=== PATIENT | female | born 1985 | race American Indian/Alaskan Native ===

== ENCOUNTER 2020-10-18 08:19 | Inpatient (IN) | payer MEDICAID ==
[2020-10-18] MEDS ORDERED: Methylergonovine 0.2 MG/1 ML Amp IM PRN (08:27)
[2020-10-18] MEDS ORDERED: Misoprostol 400 MCG (4 X 100 MCG TAB) RECTAL PRN (08:27)
[2020-10-18] MEDS ORDERED: Sodium Chloride 0.9% 10 ML Syringe FLUSH PRN ×2 (08:27→18:04)
[2020-10-18] MEDS ORDERED: Tranexamic Acid 1,000 MG in Sodium Chloride 0.9% 100 ML IV PRN (08:27)
[2020-10-18] MEDS ORDERED: Lactated Ringers 1,000 ML IV ONE (08:27)
[2020-10-18] MEDS ORDERED: Carboprost Tromethamine 250 MCG/1 ML Amp IM PRN (08:27)
[2020-10-18] MEDS ORDERED: Ondansetron 4 MG/2 ML SDV IVPUSH PRN (08:27)
[2020-10-18] MEDS ORDERED: Lidocaine 1% 30 ML SDV INJECT PRN (08:27)
[2020-10-18] MEDS: Lactated Ringers 1,000 ML IV SCH ×2 (08:30→13:14)
[2020-10-18] MEDS ORDERED: Penicillin G Potassium 5,000,000 Unit Vial ONE (08:30)
[2020-10-18] MEDS ORDERED: Oxytocin/Normal Saline 30 UNIT/500 ML BAG IV SCH (08:30)
[2020-10-18] MEDS ORDERED: Penicillin G Potassium 5 MILLUNITS in Sodium Chloride 0.9% 100 ML IV ONE (08:30)
--- NOTE | 2020-10-18 09:13 | US ---
PROCEDURE INFORMATION: Exam: US , Limited Exam date and time: 10/18/2020 8:43 AM Age: 34 years old Clinical indication: Lmp or gestational age (in weeks): ? ; Antepartum complications; Other: Edc unknown, no care, size and dates; ; Additional info: No care, abdominal pain, suspect term TECHNIQUE: Imaging protocol: Real-time ultrasound of the maternal uterus with image documentation. Exam focused on the clinical indication. COMPARISON: No relevant prior studies available. FINDINGS: Gestation: Single intrauterine gestation. heart rate: 135 bpm. Presentation: Cephalic. Placenta: Anterior fundal. Amniotic fluid: Amniotic fluid subjectively normal. BIOMETRY: Estimated due date (AUA): Average ultrasound age 37 weeks 0 days (estimated date of confinement 11/08/20). Biparietal diameter: 9.1 cm. Head circumference: 33.8 cm. Femur length: 6.9 cm. IMPRESSION: Single viable intrauterine gestation with estimated gestational age of 37 weeks 0 days.
[2020-10-18] MEDS ORDERED: Nalbuphine 10 MG/1 ML Vial IM ONE (11:03)
--- NOTE | 2020-10-18 12:23 | OBOUT ---
DATE: 10/18/2020 TIME: 8:30 to 8:45. REASON FOR NST: 1. Intrauterine . No care. Unsure dates. 2. Abdominal pain and contraction. 3. Suspect rupture of membranes approximately 12 hours prior. 4. No care. 5. Gestational versus transient hypertension versus preeclampsia, following closely. 6. . NST INTERPRETATION: During this time period, heart tone baseline is approximately 135, at least two 15 x 15 beats per minute accelerations, making this strip reactive as well as reassuring. Tocometer reveals potential 4 to 5 contractions felt by the patient breathing through them. ASSESSMENT: 1. Nonstress test, reactive, and reassuring. 2. Tocometer with contractions. PLAN: Please see admit history and physical for further details. At current time of dictation, stat ultrasound is being done. [facility] /[id number]
[2020-10-18] MEDS: Penicillin G Potassium 3 MILLUNITS in Sodium Chloride 0.9% 100 ML IV SCH ×2 (12:41→16:37)
[2020-10-18] MEDS ORDERED: fentaNYL 100 MCG/2 ML SDV ONE (13:03)
[2020-10-18] MEDS ORDERED: EPINEPHrine 1 MG/1 ML Amp ONE ×3 (13:04→13:17)
[2020-10-18] MEDS ORDERED: Sodium Bicarbonate 4.2% 2.5 MEQ/5 ML SDV ONE ×2 (13:04→13:17)
[2020-10-18] MEDS ORDERED: fentaNYL 100 MCG/2 ML SDV ITHECAL ONE (13:17)
[2020-10-18] MEDS ORDERED: Sodium Chloride 0.9% 20 ML SDV ONE (13:17)
--- NOTE | 2020-10-18 13:28 | PCM.SN.2 ---
- Free Text/Narrative Note: Intrathecal, sitting position, sterile prep and drape. 1% lidocaine w bicarb for skinwheal to L2 L3 interspace. Introducer, 24 ga pencan x 1. Pos CSF, neg heme, neg parasthesia. 0.1 ml pf 1:1000 epi, 0.4 ml pf NS, 15 mcg pf sufenta, 35 mcg pf fentanyl and 6 mg of 0.75% pf bupivacaine injected after CSF aspiration. Pt to L lateral position. Procedure time 1300 to 1330
--- NOTE | 2020-10-18 14:03 | HP ---
PATIENT IDENTIFICATION: Kathy Barger is a 34-year-old G1, P0, intrauterine , unsure dates with no care. Appears suspected term by her history. Presents with abdominal pain and vaginal leaking. HISTORY OF PRESENT ILLNESS: The patient states vaginal leaking started last night around 8 to 9 p.m., described as clear fluid enough to leak through all her clothing and what she was wearing associated with abdominal pain felt in the lower abdomen, severe enough that she is breathing through them, worsening over time, coming every couple of minutes, and nothing seems to make them better. She denies any spotting or bleeding. She has had no care up to this point in time. Records were called for and reviewed. Last visit was 09/26/2016 that we could find in [facility] ER. At that time, she was brought in for intoxication and need for medical clearance with drinking throughout the night. During that ER visit, urine drug screen was positive for THC as well as alcohol level of 387 mg/dL. ALLERGIES: None. MEDICATIONS: None. PAST MEDICAL HISTORY: The patient was hospitalized she thinks for something once, but would not elicit any further and could not remember. PAST SURGICAL HISTORY: None. FAMILY HISTORY: Negative for anesthesia or bleeding problems. No defects elicited. SOCIAL HISTORY: The patient lives in [facility] [place] with her niece. They have some dogs. She does smoke tobacco occasionally. Denies any drug use or alcohol use during this or recently. REVIEW OF SYSTEMS: Otherwise fully reviewed and felt to be noncontributory other than the above. OBJECTIVE: Vital Signs: Initial blood pressure was 170/88, heart rates between 90 and 100 by central exam, respiratory rate is 12 to 16. The patient feels afebrile. Appearance: Breathing through her contractions, but answering questions appropriately in between. Head: Atraumatic. EOMs intact. PERRLA. No scleral icterus. No sore throat. Mucous membranes are moist. Neck: No obvious tenderness. Lungs: Clear to auscultation bilaterally. No increased work of breathing. Heart: S1, S2. Regular rate and rhythm. Abdomen: Gravid. Manolo's indeterminate. Nontender, nondistended. Bowel sounds positive. No organomegaly, pulsatile masses, or obvious hernias. No rebound, rigidity, or guarding with monitors applied. : Normal external female genitalia. Normal position and presentation of urethra. Annette speculum exam was done. Did reveal positive pooling with cervix appearing to be at least 1 to 2 cm dilated as best I can tell. Dark color presenting part, suspect hair. GC, chlamydia, and wet prep were obtained. Vaginal exam was not done as ultrasound is pending. Extremities: 1 to 2+ pitting edema to proximal tibia. Deep tendon reflexes 2 to 3 out of 4 bilaterally and symmetric in extremities. Psychiatric: Mood and affect congruent. Judgment and insight intact. Skin: Without any cyanosis, clubbing, or jaundice. Pending, has no care labs, PIH panel, and a stat ultrasound. heart tones are felt to be reactive and reassuring with heart tone baseline around the 135 range. Tocometer reveals contractions when reading every couple of minutes. ASSESSMENT: 1. Intrauterine , suspect term by patient history and exam. Awaiting ultrasound today. 2. Abdominal pain with contractions. Suspected contractions started last night. Appears that her cervix is open on speculum exam. We will check her cervix if no previa is noted on the ultrasound. 3. Vaginal leaking, suspect rupture of membranes approximately at 8 to 9 p.m. yesterday. Would be approximately 12 hours ago at this point in time. 4. No care. 5. Gestational versus transient hypertension versus preeclampsia. We will follow blood pressures closely. The patient was in pain with blood pressure being taken and will need to follow this closely. May need further evaluation and treatment. 6. G1, P0. PLAN: The patient will be admitted. No care labs, stat ultrasound. Will check her cervix after the ultrasound and we will continue to follow clinically and closely. May need treatment for potential preeclampsia versus expected management and we will watch closely at this point in time. The patient will be admitted. Please see orders for further details. [facility] /[id number]
--- NOTE | 2020-10-18 14:12 | PN ---
DATE: 10/18/2020 SUBJECTIVE: The patient is still feeling contractions. OBJECTIVE: Reviewing ultrasound and with tech and imaging today appears to have average gestational age based on ultrasound at 37 weeks with a fundal placenta well away from the cervical os. ASSESSMENT: 1. Intrauterine at 37 weeks by ultrasound today. 2. Suspected labor as evidenced with contractions and cervical dilation seen on speculum exam. We will check her cervix here in a little while. 3. Spontaneous rupture of membranes approximately 12 hours prior at 8 p.m. to 9 p.m. on 10/17/2020. 4. No care. 5. Gestational versus transient versus preeclampsia. Workup being done. 6. G1, P0. PLAN: We will continue to follow clinically and closely. Plans were discussed with the patient. [facility] /[id number]
--- NOTE | 2020-10-18 14:47 | PN ---
DATE: 10/18/2020 SUBJECTIVE: The patient continues to breathe through her contractions. Ultrasound has been completed. OBJECTIVE: Vital Signs: heart tones in 140s range. Last blood pressure was 155/98, heart rate 88. Genitourinary: Vaginal exam reveals to be 2 cm, 100% effaced, 0 station, vertex suspected, and a forebag was felt with artificial rupture of membranes of this yielding clear fluid. heart tones appeared to be reassuring. Tocometer reveals contractions every 2 to 3 minutes at this time. ASSESSMENT AND PLAN: 1. Intrauterine at 37 weeks by ultrasound today. Vaginal leaking started at approximately 8 p.m. to 9 p.m. on 10/17/2020 with suspected forebag with artificial rupture of membranes as above. 2. Contractions of labor. 3. No care. 4. Gestational hypertension versus preeclampsia. No severe features at this point in time. We will continue to follow closely. Await labs and proceed with treatment if need be. 5. G1, P0. PLAN: Now, status post artificial rupture of membranes. We will continue to follow closely and clinically. The patient understands and agrees with the above treatment plan. I did discuss with her with no care, baby measuring around 37 weeks, we will need to follow closely after delivery of child and may need further evaluation and treatment there as well. [facility] /[id number]
[2020-10-18] MEDS ORDERED: Diphtheria,Pertussis(Acell),Tetanus Vaccine 0.5 ML SDV IM ONE (18:04)
[2020-10-18] MEDS ORDERED: Simethicone 80 MG Tab.Chew PO PRN (18:04)
[2020-10-18] MEDS ORDERED: Zolpidem 5 MG Tab PO PRN (18:04)
[2020-10-18] MEDS ORDERED: Benzocaine/Menthol 20%-0.5% Spray 56 GM Canister TOP PRN (18:04)
[2020-10-18] MEDS ORDERED: Oxytocin 10 Units/1 ML SDV IM PRN (18:04)
[2020-10-19] MEDS: Ibuprofen 800 MG Tab PO PRN ×2 (05:55→19:12)
--- NOTE | 2020-10-19 08:55 | PN ---
DATE: 10/19/2020 day #1. SUBJECTIVE: The patient is tolerating p.o., was ambulating, urinating, passing flatus. Denied any headaches, visual changes, or upper abdominal pain. Denies any chest pain, shortness of breath, lightheadedness. OBJECTIVE: Vital Signs: Last set of vitals updated and listed in chart. Temp 99.2, heart rate 100, blood pressure 144/72, respiratory rate 16. Lungs: Clear to auscultation bilaterally. Heart: S1, S2. Regular rate and rhythm. Abdomen: Firm uterus around the umbilicus. Extremities: Peripheral edema persists. No calf pain. LABORATORY DATA: White cell count 23.8, hemoglobin 8.7 compared to predelivery hemoglobin 9.6, and platelets 387 compared to predelivery platelets of 432. ASSESSMENT AND PLAN: 1. day #1, status post spontaneous vaginal delivery, left vaginal sidewall laceration - repaired. 2. Preeclampsia without severe features. We will need to follow up clinically and closely at this point in time, especially in light of blood pressure still being elevated. No signs or symptoms of severe preeclampsia at this point in time. We will recheck CBC tomorrow for evaluation as well. 3. Anemia of acute blood loss. Hemoglobin dropping down to 8.7. Asymptomatic currently. We will need a CBC tomorrow. 4. Positive urine drug screen for methamphetamine and amphetamine. We will watch for any signs or symptoms of withdrawal with mother as well. Otherwise, possible discharge was discussed for tomorrow if everything goes well. The patient understands and agrees to the above treatment plan. [facility] /[id number]
[2020-10-19] MEDS: Docusate Sodium 100 MG Cap PO PRN ×2 (11:16→19:12)
[2020-10-19] MEDS: Ferrous Sulfate 325 MG Tab PO SCH (11:17)
[2020-10-19] MEDS: Prenatal Multivitamin with Calcium/Folic Acid/Iron Tab PO SCH (11:17)
[2020-10-19] MEDS: Acetaminophen 325 MG Tab PO PRN ×2 (11:18→22:40)
--- NOTE | 2020-10-19 11:33 | DEL ---
DATE: 10/18/2020 PREOPERATIVE DIAGNOSES: 1. Intrauterine at 37 weeks by ultrasound on date of admission/today 10/18/2020. 2. Active labor upon admission. 3. Vaginal leaking, suspected rupture of membranes between 8 and 9 p.m. on 10/17/2020. 4. No care. 5. Preeclampsia without severe features. 6. Anemia of . Hemoglobin 9.6. 7. Methamphetamine and amphetamine positive urine drug screen with admitted use approximately 2 days ago. 8. Meconium-stained fluid. 9. G1, P0. 10.Advanced maternal age. POSTOPERATIVE DIAGNOSES: 1. Intrauterine at 37 weeks by ultrasound on date of admission/today 10/18/2020, delivered. 2. Active labor upon admission. 3. Vaginal leaking, suspected rupture of membranes between 8 and 9 p.m. on 10/17/2020. 4. No care. 5. Preeclampsia without severe features. 6. Anemia of . Hemoglobin 9.6. 7. Methamphetamine and amphetamine positive urine drug screen with admitted use approximately 2 days ago. 8. Meconium-stained fluid. 9. G1, P0. 10.Left vaginal sidewall laceration, repaired. 11.Advanced maternal age. PROCEDURES PERFORMED: Nonstress test, artificial rupture of membranes, Pitocin augmentation, and spontaneous vaginal delivery with left vaginal sidewall laceration, repaired. ANESTHESIA/ANALGESIA: The patient did receive an intrathecal in the 1st stage of labor. She also received 1% lidocaine without epinephrine, approximately 3 mL for local repair with good anesthetic result. ESTIMATED BLOOD LOSS: 400 mL. FINDINGS: Female. scores and weight pending. SUMMARY OF EVENTS: This is a 34-year-old G1, P0 intrauterine at 37 weeks based on ultrasound on date of admission, 10/18/2020, with no care, who presented with abdominal pain, then noted to be in labor with vaginal leaking approximately at 8 p.m. to 9 p.m. started day prior to delivery, approximately 20 to 22 hours prior to delivery. She subsequently had ultrasound. No care labs. She was noted to have preeclampsia without severe features, anemia of with hemoglobin 9.6. Positive drug screen for methamphetamine, amphetamine. Initially, denied drug use and then admitted last methamphetamine use approximately 2 days ago. Had some meconium-stained fluid, and had an NST, and then with vaginal exam had a forebag with artificial rupture of membranes using initially clear fluid and then subsequently turned to meconium-stained type fluid. She did receive an intrathecal in the first stage of labor as she was having issues with pain and thereafter contractions started abating and Pitocin was started. She was subsequently evaluated by nurse, found to be 8 cm. I was called to the room shortly thereafter. Exam revealed her to be complete and we started pushing while in the 2nd stage of labor. She pushed with contractions. vertex further descended and then vertex was delivered in MALLIKA presentation, followed by anterior posterior shoulder as well as the rest of the infant without difficulty. Mouth and nares were suctioned. Cord was doubly clamped, cut, and infant was resuscitated on mother's abdomen. Then, approximately 10 mL cord blood was obtained for labs. Placenta then delivered with gentle cord traction and fundal massage within 10 to 15 minutes. Perineum, vagina, perirectal areas were examined and noted to have a left vaginal sidewall laceration that was anesthetized with 1% lidocaine without epinephrine, repaired with a [id number] stitch over bleeding area and resolved thereafter. Small right-sided periurethral abrasion, nonbleeding, nonrepaired after discussion with the patient. Mother and are currently stable at time of dictation. [facility] /[id number] ANNY
[2020-10-19 14:47] LABS: C.TRACHOMATIS BY TMA Negative (Negative); N.GONORRHOEAE BY TMA Negative (Negative)
[2020-10-20] MEDS: Ibuprofen 800 MG Tab PO PRN (06:18)
[2020-10-20] MEDS: Acetaminophen 325 MG Tab PO PRN (06:18)
[2020-10-20 08:06] VITALS: BP 150/82; PULSE 87
[2020-10-20] MEDS: Prenatal Multivitamin with Calcium/Folic Acid/Iron Tab PO SCH (08:53)
[2020-10-20] MEDS: Docusate Sodium 100 MG Cap PO PRN (08:53)
[2020-10-20] MEDS: Ferrous Sulfate 325 MG Tab PO SCH (08:53)
--- NOTE | 2020-10-20 14:13 | DISCH ---
ADMIT DIAGNOSES: 1. Intrauterine . No care at 37 weeks by ultrasound on date of admission. 2. Contractions with labor upon admission. 3. Vaginal leaking at approximately 8 to 9 p.m., started on 10/17/2020, day prior to admission. 4. Preeclampsia without severe features. 5. New . Hemoglobin 9.6. 6. Methamphetamine and amphetamine positive urine drug screen. 7. Advanced maternal age. 8. No care. 9. G1, P0. DISCHARGE DIAGNOSES: 1. Intrauterine , delivered. No care at 37 weeks by ultrasound on date of admission. 2. Contractions with labor upon admission. 3. Vaginal leaking at approximately 8 to 9 p.m., started on 10/17/2020, day prior to admission. 4. Preeclampsia without severe features. 5. New . Hemoglobin 9.6. 6. Methamphetamine and amphetamine positive urine drug screen. 7. Advanced maternal age. 8. No care. 9. G1, P0. 10.Meconium-stained fluid. 11.Anemia, acute blood loss. No symptoms. No indications for blood transfusion. Hemoglobin dropping from 9.6. Predelivery down to 7.9, day of discharge. 12.Left vaginal sidewall laceration, repaired. PROCEDURE PERFORMED: Nonstress test followed by artificial rupture of membranes, forebag, Pitocin augmentation, and spontaneous vaginal delivery with a left vaginal sidewall laceration, repaired, on date of admission per Dr. Ash. HISTORY OF PRESENT ILLNESS: Please see H and P. SUMMARY OF HOSPITAL COURSE: The patient admitted on the above date with above diagnoses. No care. Had ultrasound and no care. Labs done notable for preeclampsia without severe features. Intrauterine at 37 weeks, anemia of with hemoglobin 9.6, and positive drug screen for methamphetamines and amphetamines. She underwent NST followed by artificial rupture of membranes of a forebag yielding initially clear fluid and then subsequently meconium-stained fluid. Had Pitocin augmentation, intrathecal, and went on to have spontaneous vaginal delivery yielding a female with scores of 8 and 9, weighing 2920 g (6 pounds 7 ounces). Please see delivery note for further details. day #1, please see progress note. day #2, date of discharge, the patient was tolerating p.o., was ambulating, urinating, passing flatus, had some minor neck pain related to what we suspect pushing. She denied any headaches, visual changes, upper abdominal pain, chest pain, shortness of breath, or lightheadedness. OBJECTIVE: Vital Signs: Temperature 98.1, heart rate 87, blood pressure 150/82, respiratory rate 16. Lungs: Clear to auscultation bilaterally. Heart: S1, S2. Regular rate and rhythm. Abdomen: Firm uterus. -1 below umbilicus. Extremities: Trace pedal edema. No calf pain. DISCHARGE LABS: White cell count 15.9, come down from previous day of 23.8, hemoglobin 7.9, compared to predelivery hemoglobin 9.6, and platelets of 351. HELLP labs were done with notable significant improvement in LDH from 696 down to 279. Uric acid decreasing from 6.6 to 6.2. CONDITION ON DISCHARGE COMPARED TO CONDITION ON ADMISSION: Improved. DISCHARGE INSTRUCTIONS: 1. Diet: As tolerated. 2. Activity: No lifting more than 20 pounds. No sit-ups, straining, or pelvic rest for the next 6 weeks with immediate return to fertility discussed with the patient. Reasons to return or go to the emergency were discussed with the patient in detail including, but not limited to, temperature greater than 100.4, foul- smelling discharge, red, hot, tender breasts, or increased vaginal bleeding or headaches, visual changes, upper abdominal pain. FOLLOWUP: On 10/22/2020 with her baby for blood pressure evaluation and follow closely. I did discuss importance of followup and ramifications of not doing so in regard to the patient as well as her baby as well as reasons to return or go to the emergency room in regard to her baby were discussed. [facility] /[id number]
== END 2020-10-20 11:10 | disposition home or self-care (01) | DRG 806 ==
LOC: DL.OB 08:19 → EDSTATUS 09:30 → DL.OB 17:44 → OBSVTOIN 17:44
PROVIDERS: ADMIT Family Medicine; ATTEND Family Medicine
PROC: 10E0XZZ Delivery of Products of Conception, External Approach (ICD-10-PCS; principal; 2020-10-18)
PROC: 10907ZC Drainage of Amniotic Fluid, Therapeutic from Products of Conception, Via Natural or Artificial Opening (ICD-10-PCS; 2020-10-18)
PROC: 0UQGXZZ Repair Vagina, External Approach (ICD-10-PCS; 2020-10-18)
PROC: 3E0R3BZ Introduction of Anesthetic Agent into Spinal Canal, Percutaneous Approach (ICD-10-PCS; 2020-10-18)
PROC: 00HU33Z Insertion of Infusion Device into Spinal Canal, Percutaneous Approach (ICD-10-PCS; 2020-10-18)
DX: O14.04 Mild to moderate pre-eclampsia, complicating childbirth (principal); D62 Acute posthemorrhagic anemia; Z37.0 Single live birth; O99.324 Drug use complicating childbirth; F15.90 Other stimulant use, unspecified, uncomplicated; Z3A.37 37 weeks gestation of pregnancy; O99.02 Anemia complicating childbirth; O77.0 Labor and delivery complicated by meconium in amniotic fluid; O71.4 Obstetric high vaginal laceration alone
CPT/HCPCS: 01967; 36415; 51703; 59409; 76815; 80305-QW; 80307; 81001; 82565; 82570; 83615; 84156; 84450; 84460; 84520; 84550; 85027; 86592; 86762; 86803; 86850; 86900; 86901; 87081; 87210; 87340; 87389; 87491; 87591; 90471; 90715; A9270-GY; J0171; J2001; J2300; J2405; J2540; J2590; J3010; J7120; U0002

== ENCOUNTER 2020-10-26 11:54 | Emergency (ER) | payer MEDICAID ==
[2020-10-26] MEDS ORDERED: Dexamethasone 4 MG/ML SDV IVPUSH ONE (12:02)
[2020-10-26] MEDS ORDERED: Sodium Chloride 0.9% 1,000 ML IV ONE (12:02)
[2020-10-26 12:07] VITALS: BP 135/107; PULSE 136
[2020-10-26] MEDS: Sodium Chloride 0.9% 10 ML Syringe FLUSH PRN ×3 (12:14→14:11)
[2020-10-26 12:38] LABS: PTT,PARTIAL THROMBOPLSTIN TIME 26.7 SEC (22.0-34.0)
[2020-10-26 12:49] LABS: ANION GAP 18.3 mEq/L (7-13); CHLORIDE,CL 103 mmol/L (98-107); SODIUM,NA 138 mmol/L (136-145)
[2020-10-26] MEDS ORDERED: Furosemide 40 MG/4 ML VIAL IVPUSH ONE (12:49)
[2020-10-26] MEDS ORDERED: Furosemide 40 MG/4 ML VIAL ONE (12:51)
[2020-10-26 12:58] LABS: CORONAVIRUS COVID-19 NAA NEGATIVE (NEGATIVE)
[2020-10-26] MEDS ORDERED: Iopamidol 755 Mg/ML 100 ML Bottle IVPUSH ONE (12:59)
--- NOTE | 2020-10-26 13:42 | CT ---
EXAMINATION: Chest w Cont SEX: Female AGE: 34 years CLINICAL HISTORY: 34-year-old, recently , 135 pound female with DYSPNEA (drug abuse history) PE study. BNP 1850, Trop 0.775. Covid test negative. Scan technique: Volume acquisition of data from the chest obtained during intravenous administration 60 cc cc nonionic Isovue 370 contrast at 4.5 cc/s via injector obtained while patient was lying supine on the Siemens multislice scanner [place], [place]. All data archived in the PACS system for storage, reformatting axial/sagittal/coronal planes and study. Interpretation: Markedly abnormal. CT appearance most consistent with heart failure. 1. Normal cardiac silhouette (size and configuration). No pericardial effusion. 2. Extensive dense perihilar consolidation and large dependent pleural fluid accumulation (effusions, R>L). Congestive heart failure showing differential consideration along with acute respiratory distress (ARDS). 3. No peripheral "groundglass" interstitial infiltrates. 4. No suspicious parenchymal lung mass lesion or hilar/mediastinal lymphadenopathy. 5. No pneumothorax or pneumomediastinum. 6. Gallbladder, liver, stomach, spleen and pancreas unremarkable. 7. Glandular breast tissue symmetrically engorged.
[2020-10-26] MEDS ORDERED: Nitroglycerin/D5W 25 MG/250 ML BOTTLE IV SCH (13:45)
[2020-10-26] MEDS: Heparin Sodium 5,000 Units/ML Vial IVPUSH ONE ×2 (14:02→14:23)
--- NOTE | 2020-10-26 14:02 | EDM.PDOC ---
ED HPI GENERAL MEDICAL PROBLEM - General Chief Complaint: Respiratory Problem Stated Complaint: AMBULANCE Time Seen by Provider: 10/26/20 11:55 Source of Information: Reports: Patient, Old Records, Provider (Dr. Ash), RN, RN Notes Reviewed History Limitations: Reports: Other (Pt no cooperative in answering questions.) - History of Present Illness INITIAL COMMENTS - FREE TEXT/NARRATIVE: Pt sent from clinic by Dr. Ash for evaluation of shortness of breath with hypoxia. Pt is 8 days s/p vaginal delivery with preeclampsia in , no care, and methamphetamine use up until delivery. Pt admits to increasing shortness of breath over the past several days. She feels "puffy" and swollen all over her body. Denies fever, or chest pain. Admits to cough. Pt denies Hx of heart disease. She was in clinic today for routine check up when she appeared to be short of breath to Dr. Ash. She was found in clinic to have oxygen saturation of 88% on room air, with HR 130s, resp. rate 32, and afebrile. Onset: Unknown/Unsure Duration: Constant, Getting Worse Location: Reports: Chest, Generalized Quality: Reports: Pressure Severity: Severe Improves with: Reports: None Worsens with: Reports: Other (Laying down, and worse with activity/exertion.) Associated Symptoms: Reports: No Other Symptoms - Related Data Allergies Allergy/AdvReac Type Severity Reaction Status Date / Time No Known Allergies Allergy Verified 10/26/20 12:21 Home Meds: Home Meds . 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: Psychiatric History: Reports: Addiction (Methamphetamine) Social & Family History - Family History Family Medical History: No Pertinent Family History - Tobacco Use Tobacco Use Status *Q: Former Tobacco User Used Tobacco, but Quit: Yes Month/Year Tobacco Last Used: 0 - Caffeine Use Caffeine Use: Reports: None - Alcohol Use Alcohol Use History: No - Recreational Drug Use Recreational Drug Use: Yes Recreational Drug Type: Reports: Methamphetamine - Living Situation & Occupation Living situation: Reports: with Family ED ROS GENERAL - Review of Systems Review Of Systems: Comprehensive ROS is negative, except as noted in HPI. ED EXAM, GENERAL - Physical Exam Exam: See Below Exam Limited By: No Limitations General Appearance: Alert, Mild Distress, Other (Acutely ill appearing) Eye Exam: Bilateral Eye: Normal Inspection (No scleral icterus) Nose: Normal Inspection, Normal Mucosa, No Blood Throat/Mouth: Normal Lips, Normal Oropharynx, Normal Voice, No Airway Compromise Head: Atraumatic, Normocephalic Neck: Supple, Non-Tender. No: Lymphadenopathy (L), Lymphadenopathy (R) Respiratory/Chest: Chest Non-Tender, Respiratory Distress, Decreased Breath Sounds, Crackles, Rales. No: Rhonchi, Wheezing, Stridor Cardiovascular: JVD, Tachycardia GI/Abdominal: Normal Bowel Sounds, Soft, Non-Tender. No: Hepatomegaly (Female) Exam: Deferred Rectal (Female) Exam: Deferred Back Exam: Normal Inspection Extremities: Normal Range of Motion, Non-Tender, Pedal Edema Neurological: Alert, Oriented, No Motor/Sensory Deficits Psychiatric: Depressed Mood, Flat Affect Skin Exam: Warm, Dry, Intact, Pallor. No: Ecchymosis, Jaundice, Petechiae #1 Interpretation EKG Date: 10/26/20 Time: 12:07 Rhythm: Other (Sinus tach) Rate (Beats/Min): 130 Pettus: RAD-Right Pettus Deviation P-Wave: Present QRS: Normal ST-T: Depressed (minimal nondiagnostic ST segment depression) QT: Normal Comparison: NA - No Prior EKG Course - Vital Signs Last Recorded V/S: Last Vital Signs Temp 97.8 F 10/26/20 11:54 Pulse 136 H 10/26/20 11:54 Resp 32 H 10/26/20 11:54 BP 135/107 H 10/26/20 11:54 Pulse Ox 88 L 10/26/20 11:54 - Orders/Labs/Meds Orders: Active Orders 24 hr Category Date Time Status BIPAP Adult [RT BiPAP/CPAP] [RC] ASDIRECTED Care 10/26/20 13:34 Active EKG 12 Lead [EKG Documentation Completion] [RC] STAT Care 10/26/20 12:01 Active Insert Mandel Catheter [Insert Urinary Catheter] [OM.PC] Care 10/26/20 13:00 Ordered Stat Peripheral IV Care [RC] . DIRECTED Care 10/26/20 12:02 Active Urinary Catheter Assessment [RC] ASDIRECTED Care 10/26/20 13:01 Active CULTURE BLOOD [BC] Stat Lab 10/26/20 12:00 Received CULTURE BLOOD [BC] Stat Lab 10/26/20 12:38 Received STREP SCRN A RAPID W CULT CONF [RM] Stat Lab 10/26/20 12:01 Ordered Heparin Sodium/0.45% NaCl [Heparin 25,000 Units in 1/2 Med 10/26/20 14:15 Ordered NS 500 ML] 25,000 units in 500 ml IV TITRATE Nitroglycerin/D5W [Nitroglycerin 25 MG/D5W 250 ML] Med 10/26/20 13:45 Active 25 mg in 250 ml IV TITRATE Sodium Chloride 0.9% [Saline Flush] Med 10/26/20 12:00 Active 10 ml FLUSH ASDIRECTED PRN Blood Culture x2 Reflex Set [OM.PC] Stat Oth 10/26/20 12:00 Ordered Peripheral IV Insertion Adult [OM.PC] Stat Oth 10/26/20 12:01 Ordered Medication Orders Nitroglycerin/Dextrose (Nitroglycerin 25 Mg/D5w 250 Ml) 25 mg in 250 mls @ 6 mls/hr IV TITRATE WES; Protocol Last Admin: 10/26/20 14:10 Dose: 10 mcg/min, 6 mls/hr Documented by: NASEEM Sodium Chloride (Saline Flush) 10 ml FLUSH ASDIRECTED PRN PRN Reason: Keep Vein Open Last Admin: 10/26/20 14:11 Dose: 10 ml Documented by: Admin: 10/26/20 12:53 Dose: 10 ml Documented by: Admin: 10/26/20 12:14 Dose: 10 ml Documented by: NASEEM Labs: Laboratory Tests 10/26/20 10/26/20 10/26/20 Range/Units 12:00 12:00 12:00 WBC 16.8 H (5.0-10.0) 10^3/uL RBC 4.00 L (4.2-5.4) 10^6/uL Hgb 10.0 L D (12.0-16.0) g/dL Hct 31.6 L (37.0-47.0) % MCV 79.0 L (80-100) fL MCH 25.0 L (27.0-34.0) pg MCHC 31.6 L (33.0-35.0) g/dL Plt Count 636 H D (150-450) 10^3/uL Neut % (Auto) 86.8 H (42.2-75.2) % Lymph % (Auto) 8.1 L (20.5-50.1) % [place] % (Auto) 4.2 (2-8) % Eos % (Auto) 0.7 L (1.0-3.0) % Baso % (Auto) 0.2 (0.0-1.0) % Add Manual Diff Yes Neutrophils % (Manual) 82 H (42-75) % Band Neutrophils % 2 % Lymphocytes % (Manual) 11 L (20-50) % Monocytes % (Manual) 5 (2-8) % PT (9.0-12.0) SEC INR (0.9-1.2) APTT (22.0-34.0) SEC ABG pH (7.35-7.45) ABG pCO2 (35-45) mmHg ABG pO2 (70-100) mmHg ABG HCO3 (22-26) mmol/L ABG O2 Saturation (95-100) % ABG Base Excess ((-2)-(+3)) mmol/L Isai Test O2 Delivery Device Sodium 138 (136-145) mmol/L Potassium 4.3 (3.5-5.1) mmol/L Chloride 103 (98-107) mmol/L Carbon Dioxide 21 (21-32) mmol/L Anion Gap 18.3 H (7-13) mEq/L BUN 14 (7-18) mg/dL Creatinine 0.73 (0.55-1.02) mg/dL Est Cr Clr Drug Dosing TNP Estimated GFR (MDRD) > 60 BUN/Creatinine Ratio 19.2 (No establ ref range) Glucose 108 H (74-99) mg/dL Lactic Acid (0.4-2.0) mmol/L Calcium 8.3 L (8.5-10.1) mg/dL Magnesium (1.8-2.4) mg/dL Total Bilirubin 0.3 (0.2-1.0) mg/dL AST 17 (15-37) U/L ALT 15 (14-59) U/L Alkaline Phosphatase 141 H (46-116) U/L Troponin I 0.775 H* (0.000-0.056) ng/mL C-Reactive Protein 7.6 H (0.0-0.9) mg/dL B-Natriuretic Peptide 1820 H (0-100) pg/ml Total Protein 6.7 (6.4-8.2) g/dL Albumin 2.0 L (3.4-5.0) g/dL Globulin 4.7 Albumin/Globulin Ratio 0.43 TSH, Ultra Sensitive (0.36-3.74) uIU/mL Urine Color (YELLOW) Urine Appearance (CLEAR) Urine pH (5.0-9.0) Ur Specific Melba (1.005-1.030) Urine Protein (NEGATIVE) Urine Glucose (UA) (NEGATIVE) Urine Ketones (NEGATIVE) Urine Occult Blood (NEGATIVE) Urine Nitrite (NEGATIVE) Urine Bilirubin (NEGATIVE) Urine Urobilinogen (0.2-1.0) mg/dL Ur Leukocyte Esterase (NEGATIVE) Urine RBC /HPF Urine WBC (0-5/HPF) /HPF Ur Epithelial Cells (NOT SEEN) /HPF Amorphous Sediment (NOT SEEN) /HPF Urine Bacteria (0-FEW/HPF) /HPF Urine Opiates Screen (NEGATIVE) Ur Oxycodone Screen (NEGATIVE) Urine Methadone Screen (NEGATIVE) Ur Barbiturates Screen (NEGATIVE) U Tricyclic Antidepress (NEGATIVE) Ur Phencyclidine Scrn (NEGATIVE) Ur Amphetamine Screen (NEGATIVE) U Methamphetamines Scrn (NEGATIVE) Urine MDMA Screen (NEGATIVE) U Benzodiazepines Scrn (NEGATIVE) Urine Cocaine Screen (NEGATIVE) U Marijuana (THC) Screen (NEGATIVE) Ethyl Alcohol < 3 (0) mg/dL Influenza Type A RNA Negative (NEGATIVE) Influenza Type B RNA Negative (NEGATIVE) SARS-CoV-2 RNA (JUAN) Negative (NEGATIVE) 10/26/20 10/26/20 10/26/20 Range/Units 12:00 12:00 12:06 WBC (5.0-10.0) 10^3/uL RBC (4.2-5.4) 10^6/uL Hgb (12.0-16.0) g/dL Hct (37.0-47.0) % MCV (80-100) fL MCH (27.0-34.0) pg MCHC (33.0-35.0) g/dL Plt Count (150-450) 10^3/uL Neut % (Auto) (42.2-75.2) % Lymph % (Auto) (20.5-50.1) % [place] % (Auto) (2-8) % Eos % (Auto) (1.0-3.0) % Baso % (Auto) (0.0-1.0) % Add Manual Diff Neutrophils % (Manual) (42-75) % Band Neutrophils % % Lymphocytes % (Manual) (20-50) % Monocytes % (Manual) (2-8) % PT 9.6 (9.0-12.0) SEC INR 1.0 (0.9-1.2) APTT 26.7 (22.0-34.0) SEC ABG pH (7.35-7.45) ABG pCO2 (35-45) mmHg ABG pO2 (70-100) mmHg ABG HCO3 (22-26) mmol/L ABG O2 Saturation (95-100) % ABG Base Excess ((-2)-(+3)) mmol/L Isai Test O2 Delivery Device Sodium (136-145) mmol/L Potassium (3.5-5.1) mmol/L Chloride (98-107) mmol/L Carbon Dioxide (21-32) mmol/L Anion Gap (7-13) mEq/L BUN (7-18) mg/dL Creatinine (0.55-1.02) mg/dL Est Cr Clr Drug Dosing Estimated GFR (MDRD) BUN/Creatinine Ratio (No establ ref range) Glucose (74-99) mg/dL Lactic Acid 1.2 (0.4-2.0) mmol/L Calcium (8.5-10.1) mg/dL Magnesium 1.8 (1.8-2.4) mg/dL Total Bilirubin (0.2-1.0) mg/dL AST (15-37) U/L ALT (14-59) U/L Alkaline Phosphatase (46-116) U/L Troponin I (0.000-0.056) ng/mL C-Reactive Protein (0.0-0.9) mg/dL B-Natriuretic Peptide (0-100) pg/ml Total Protein (6.4-8.2) g/dL Albumin (3.4-5.0) g/dL Globulin Albumin/Globulin Ratio TSH, Ultra Sensitive 0.81 (0.36-3.74) uIU/mL Urine Color (YELLOW) Urine Appearance (CLEAR) Urine pH (5.0-9.0) Ur Specific Melba (1.005-1.030) Urine Protein (NEGATIVE) Urine Glucose (UA) (NEGATIVE) Urine Ketones (NEGATIVE) Urine Occult Blood (NEGATIVE) Urine Nitrite (NEGATIVE) Urine Bilirubin (NEGATIVE) Urine Urobilinogen (0.2-1.0) mg/dL Ur Leukocyte Esterase (NEGATIVE) Urine RBC /HPF Urine WBC (0-5/HPF) /HPF Ur Epithelial Cells (NOT SEEN) /HPF Amorphous Sediment (NOT SEEN) /HPF Urine Bacteria (0-FEW/HPF) /HPF Urine Opiates Screen (NEGATIVE) Ur Oxycodone Screen (NEGATIVE) Urine Methadone Screen (NEGATIVE) Ur Barbiturates Screen (NEGATIVE) U Tricyclic Antidepress (NEGATIVE) Ur Phencyclidine Scrn (NEGATIVE) Ur Amphetamine Screen (NEGATIVE) U Methamphetamines Scrn (NEGATIVE) Urine MDMA Screen (NEGATIVE) U Benzodiazepines Scrn (NEGATIVE) Urine Cocaine Screen (NEGATIVE) U Marijuana (THC) Screen (NEGATIVE) Ethyl Alcohol (0) mg/dL Influenza Type A RNA (NEGATIVE) Influenza Type B RNA (NEGATIVE) SARS-CoV-2 RNA (JUAN) (NEGATIVE) 10/26/20 10/26/20 10/26/20 Range/Units 13:05 13:05 13:59 WBC (5.0-10.0) 10^3/uL RBC (4.2-5.4) 10^6/uL Hgb (12.0-16.0) g/dL Hct (37.0-47.0) % MCV (80-100) fL MCH (27.0-34.0) pg MCHC (33.0-35.0) g/dL Plt Count (150-450) 10^3/uL Neut % (Auto) (42.2-75.2) % Lymph % (Auto) (20.5-50.1) % [place] % (Auto) (2-8) % Eos % (Auto) (1.0-3.0) % Baso % (Auto) (0.0-1.0) % Add Manual Diff Neutrophils % (Manual) (42-75) % Band Neutrophils % % Lymphocytes % (Manual) (20-50) % Monocytes % (Manual) (2-8) % PT (9.0-12.0) SEC INR (0.9-1.2) APTT (22.0-34.0) SEC ABG pH 7.38 (7.35-7.45) ABG pCO2 35 (35-45) mmHg ABG pO2 67 L (70-100) mmHg ABG HCO3 20.6 L (22-26) mmol/L ABG O2 Saturation 89 L (95-100) % ABG Base Excess -4 L ((-2)-(+3)) mmol/L Isai Test Performed O2 Delivery Device Bipap Sodium (136-145) mmol/L Potassium (3.5-5.1) mmol/L Chloride (98-107) mmol/L Carbon Dioxide (21-32) mmol/L Anion Gap (7-13) mEq/L BUN (7-18) mg/dL Creatinine (0.55-1.02) mg/dL Est Cr Clr Drug Dosing Estimated GFR (MDRD) BUN/Creatinine Ratio (No establ ref range) Glucose (74-99) mg/dL Lactic Acid (0.4-2.0) mmol/L Calcium (8.5-10.1) mg/dL Magnesium (1.8-2.4) mg/dL Total Bilirubin (0.2-1.0) mg/dL AST (15-37) U/L ALT (14-59) U/L Alkaline Phosphatase (46-116) U/L Troponin I (0.000-0.056) ng/mL C-Reactive Protein (0.0-0.9) mg/dL B-Natriuretic Peptide (0-100) pg/ml Total Protein (6.4-8.2) g/dL Albumin (3.4-5.0) g/dL Globulin Albumin/Globulin Ratio TSH, Ultra Sensitive (0.36-3.74) uIU/mL Urine Color Yellow (YELLOW) Urine Appearance Clear (CLEAR) Urine pH 7.0 (5.0-9.0) Ur Specific Melba >= 1.030 (1.005-1.030) Urine Protein 100 H (NEGATIVE) Urine Glucose (UA) Negative (NEGATIVE) Urine Ketones Negative (NEGATIVE) Urine Occult Blood Trace-intact H (NEGATIVE) Urine Nitrite Negative (NEGATIVE) Urine Bilirubin Negative (NEGATIVE) Urine Urobilinogen 0.2 (0.2-1.0) mg/dL Ur Leukocyte Esterase Negative (NEGATIVE) Urine RBC 0-5 /HPF Urine WBC 0-5 (0-5/HPF) /HPF Ur Epithelial Cells Rare (NOT SEEN) /HPF Amorphous Sediment Few (NOT SEEN) /HPF Urine Bacteria Rare (0-FEW/HPF) /HPF Urine Opiates Screen Negative (NEGATIVE) Ur Oxycodone Screen Negative (NEGATIVE) Urine Methadone Screen Negative (NEGATIVE) Ur Barbiturates Screen Negative (NEGATIVE) U Tricyclic Antidepress Negative (NEGATIVE) Ur Phencyclidine Scrn Negative (NEGATIVE) Ur Amphetamine Screen Negative (NEGATIVE) U Methamphetamines Scrn Negative (NEGATIVE) Urine MDMA Screen Negative (NEGATIVE) U Benzodiazepines Scrn Negative (NEGATIVE) Urine Cocaine Screen Negative (NEGATIVE) U Marijuana (THC) Screen Negative (NEGATIVE) Ethyl Alcohol (0) mg/dL Influenza Type A RNA (NEGATIVE) Influenza Type B RNA (NEGATIVE) SARS-CoV-2 RNA (JUAN) (NEGATIVE) Meds: Medications Generic Name Dose Route Start Last Admin Trade Name Freq PRN Reason Stop Dose Admin Nitroglycerin/Dextrose 25 mg in 250 mls @ 6 mls/hr 10/26/20 13:45 10/26/20 14:10 Nitroglycerin 25 Mg/D5w 250 Ml IV 10 mcg/min TITRATE WES 6 mls/hr Administration Protocol 10 MCG/MIN Sodium Chloride 10 ml 10/26/20 12:00 10/26/20 14:11 Saline Flush FLUSH 10 ml ASDIRECTED PRN Administration Keep Vein Open Discontinued Medications Generic Name Dose Route Start Last Admin Trade Name Freq PRN Reason Stop Dose Admin Dexamethasone 6 mg 10/26/20 12:02 10/26/20 12:14 Decadron IVPUSH 10/26/20 12:03 6 mg ONETIME ONE Administration Furosemide 80 mg 10/26/20 12:49 10/26/20 12:52 Lasix IVPUSH 10/26/20 12:50 80 mg NOW ONE Administration Furosemide Confirm 10/26/20 12:51 10/26/20 12:56 Lasix Administered 10/26/20 12:52 Not Given Dose 80 mg .ROUTE .STK-MED ONE Heparin Sodium (Porcine) 4,000 units 10/26/20 13:01 10/26/20 14:02 Heparin Sodium IVPUSH 10/26/20 13:02 Not Given .BOLUS ONE Sodium Chloride 1,000 mls @ 999 mls/hr 10/26/20 12:02 10/26/20 12:13 Normal Saline IV 10/26/20 13:02 999 mls/hr .BOLUS ONE Administration Iopamidol 100 ml 10/26/20 12:59 10/26/20 13:25 [id number] (76%) IVPUSH 10/26/20 13:00 60 ml ONETIME ONE Administration - Radiology Interpretation Free Text/Narrative:: CT Chest: no PE, acute heart failure with fluid overload, perihilar and dependent pleural fluid, likely effusion per radiologist's report. Departure - Departure Time of Disposition: 14:32 Disposition: DC/Tfer to Acute Hospital 02 Condition: Critical Clinical Impression: Non-ST elevated myocardial infarction (non-STEMI), edema, Methamphetamine abuse Acute heart failure Qualifiers: Heart failure type: unspecified Qualified Code(s): I50.9 - Heart failure, unspecified - Discharge Information *PRESCRIPTION DRUG MONITORING PROGRAM REVIEWED*: No *COPY OF PRESCRIPTION DRUG MONITORING REPORT IN PATIENT PHILLY: No Forms: ED Department [facility] Seps[facility] Event Note (ED) - Evaluation Sepsis Screening Result: No Definite Risk - Focused Exam Vital Signs: Vital Signs Temp Pulse Resp BP Pulse Ox 10/26/20 11:54 97.8 F 136 H 32 H 135/107 H 88 L - My Orders Last 24 Hours: My Active Orders 10/26/20 12:00 CULTURE BLOOD [BC] Stat Sodium Chloride 0.9% [Saline Flush] 10 ml FLUSH ASDIRECTED PRN Blood Culture x2 Reflex Set [OM.PC] Stat 10/26/20 12:01 EKG 12 Lead [EKG Documentation Completion] [RC] STAT STREP SCRN A RAPID W CULT CONF [RM] Stat Peripheral IV Insertion Adult [OM.PC] Stat 10/26/20 12:02 Peripheral IV Care [RC] . DIRECTED 10/26/20 12:38 CULTURE BLOOD [BC] Stat 10/26/20 13:00 Insert Mandel Catheter [Insert Urinary Catheter] [OM.PC] Stat 10/26/20 13:01 Urinary Catheter Assessment [RC] ASDIRECTED 10/26/20 13:34 BIPAP Adult [RT BiPAP/CPAP] [RC] ASDIRECTED 10/26/20 13:45 Nitroglycerin/D5W [Nitroglycerin 25 MG/D5W 250 ML] 25 mg in 250 ml IV TITRATE 10/26/20 14:15 Heparin Sodium/0.45% NaCl [Heparin 25,000 Units in 1/2 NS 500 ML] 25,000 units in 500 ml IV TITRATE - Assessment/Plan Last 24 Hours: My Active Orders 10/26/20 12:00 CULTURE BLOOD [BC] Stat Sodium Chloride 0.9% [Saline Flush] 10 ml FLUSH ASDIRECTED PRN Blood Culture x2 Reflex Set [OM.PC] Stat 10/26/20 12:01 EKG 12 Lead [EKG Documentation Completion] [RC] STAT STREP SCRN A RAPID W CULT CONF [] Stat Peripheral IV Insertion Adult [OM.PC] Stat 10/26/20 12:02 Peripheral IV Care [RC] . DIRECTED 10/26/20 12:38 CULTURE BLOOD [BC] Stat 10/26/20 13:00 Insert Mandel Catheter [Insert Urinary Catheter] [OM.PC] Stat 10/26/20 13:01 Urinary Catheter Assessment [RC] ASDIRECTED 10/26/20 13:34 BIPAP Adult [RT BiPAP/CPAP] [RC] ASDIRECTED 10/26/20 13:45 Nitroglycerin/D5W [Nitroglycerin 25 MG/D5W 250 ML] 25 mg in 250 ml IV TITRATE 10/26/20 14:15 Heparin Sodium/0.45% NaCl [Heparin 25,000 Units in 1/2 NS 500 ML] 25,000 units in 500 ml IV TITRATE
[2020-10-26 14:03] LABS: BASE EXCESS ARTERIAL -4 mmol/L ((-2)-(+3)); BICARBONATE,ARTERIAL 20.6 mmol/L (22-26); O2 DELIVERY DEVICE BIPAP; O2 SATURATION ARTERIAL 89 % (95-100); PCO2 ARTERIAL 35 mmHg (35-45); PO2 ARTERIAL 67 mmHg (70-100)
[2020-10-26 14:04] LABS: ALLEN TEST PERFORMED
[2020-10-26] MEDS ORDERED: Heparin Sodium/0.45% NaCl 25,000 UNITS/500 ML BAG IV SCH (14:15)
== END 2020-10-26 14:55 ==
LOC: DL.ED 11:54
DX: O99.43 Diseases of the circulatory system complicating the puerperium (principal); I21.4 Non-ST elevation (NSTEMI) myocardial infarction; O99.325 Drug use complicating the puerperium; O12.05 Gestational edema, complicating the puerperium; F15.10 Other stimulant abuse, uncomplicated; I50.9 Heart failure, unspecified; Z87.891 Personal history of nicotine dependence; Z20.822 Contact with and (suspected) exposure to COVID-19
CPT/HCPCS: 0240U; 36415; 36600; 51702; 71260; 80053; 80305; 80307; 81001; 82803; 83605; 83735; 83880; 84443; 84484; 85025; 85610; 85730; 86140; 87040; 93005; 93010; 94660; 96365; 96368; 96375; 99285; J1100; J1644; J1940; J3490; J7030; Q9967

== ENCOUNTER 2024-02-11 19:51 | Inpatient (IN) | payer MEDICAID ==
[2024-02-11] MEDS: Lactated Ringers 1,000 ML IV ONE ×2 (20:15→20:48)
[2024-02-11 20:22] LABS: HEMATOCRIT 30.7 % (37.0-47.0); MEAN CORPUSCULAR HEMOGLOBIN 27.1 pg (27.0-34.0); MEAN CORPUSCULAR HGB CONC 32.6 g/dL (33.0-35.0); MEAN CORPUSCULAR VOLUME 83.2 fL (80-100); RED BLOOD CELL COUNT 3.69 10^6/uL (4.2-5.4)
[2024-02-11] MEDS ORDERED: Oxytocin/Normal Saline 30 UNIT/500 ML BAG ONE (20:43)
[2024-02-11 20:59] LABS: APPEARANCE,URINE CLEAR (CLEAR); BILIRUBIN,URINE NEGATIVE (NEGATIVE); COLOR,URINE YELLOW (YELLOW); GLUCOSE,URINE NEGATIVE (NEGATIVE); KETONES,URINE NEGATIVE (NEGATIVE); LEUKOCYTE ESTERASE,URINE NEGATIVE (NEGATIVE); NITRITE,URINE NEGATIVE (NEGATIVE); OCCULT BLOOD,URINE LARGE (NEGATIVE); PROTEIN,URINE 30 (NEGATIVE); UROBILINOGEN,URINE 0.2 mg/dL (0.2-1.0)
[2024-02-11 21:08] LABS: AMPHETAMINES,URINE NEGATIVE (NEGATIVE); BARBITURATES,URINE NEGATIVE (NEGATIVE); BENZODIAZEPINE,URINE NEGATIVE (NEGATIVE); MDMA (ECSTASY), URINE NEGATIVE (NEGATIVE); METHADONE,URINE NEGATIVE (NEGATIVE); METHAMPHETAMINES,URINE NEGATIVE (NEGATIVE); OPIATES,URINE NEGATIVE (NEGATIVE); OXYCODONE,URINE NEGATIVE (NEGATIVE); PHENCYCLIDINE,URINE NEGATIVE (NEGATIVE); TCA,URINE NEGATIVE (NEGATIVE)
[2024-02-11 21:23] LABS: BACTERIA,URINE FEW /HPF (0-FEW/HPF); EPITHELIAL CELLS,URINE FEW /HPF (NOT SEEN); RBC,URINE 20-30 /HPF (0-5)
[2024-02-11] MEDS: Lactated Ringers 1,000 ML IV SCH (21:31)
[2024-02-11] MEDS: Oxytocin/Normal Saline 30 UNIT/500 ML BAG IV SCH (21:31)
[2024-02-11] MEDS ORDERED: Acetaminophen 325 MG Tab PO PRN (21:59)
[2024-02-11] MEDS ORDERED: Tranexamic Acid 1,000 MG in Sodium Chloride 0.9% 100 ML IV PRN (21:59)
[2024-02-11] MEDS ORDERED: Naloxone 2 MG/2 ML Syringe IVPUSH PRN (21:59)
[2024-02-11] MEDS ORDERED: ePHEDrine 50 MG/ML SDV IVPUSH PRN (21:59)
[2024-02-11] MEDS ORDERED: Methylergonovine 0.2 MG/1 ML Amp IM PRN (21:59)
[2024-02-11] MEDS ORDERED: Carboprost Tromethamine 250 MCG/1 ML Amp IM PRN (21:59)
[2024-02-11] MEDS ORDERED: Misoprostol 400 MCG (4 X 100 MCG TAB) RECTAL PRN (21:59)
[2024-02-11] MEDS ORDERED: Ibuprofen 800 MG Tab PO PRN (21:59)
[2024-02-11] MEDS ORDERED: Ketorolac 30 MG/ML SDV IVPUSH SCH (22:00)
[2024-02-11] MEDS: cefTRIAXone 1 GM Vial IVPUSH ONE (23:00)
[2024-02-12] MEDS: Ondansetron 4 MG/2 ML SDV IVPUSH PRN (01:02)
[2024-02-12] MEDS: diphenhydrAMINE 50 MG/ML SDV IVPUSH PRN (01:11)
[2024-02-12] MEDS: Ketorolac 30 MG/ML SDV IVPUSH SCH (03:24)
[2024-02-12 06:15] LABS: HEMATOCRIT 28.5 % (37.0-47.0); HEMOGLOBIN 9.1 g/dL (12.0-16.0); MEAN CORPUSCULAR HEMOGLOBIN 26.9 pg (27.0-34.0); MEAN CORPUSCULAR HGB CONC 31.9 g/dL (33.0-35.0); MEAN CORPUSCULAR VOLUME 84.3 fL (80-100); RED BLOOD CELL COUNT 3.38 10^6/uL (4.2-5.4); WHITE BLOOD CELL COUNT,WBC 32.8 10^3/uL (5.0-10.0)
[2024-02-12] MEDS: Prenatal Multivitamin with Calcium/Folic Acid/Iron Tab PO SCH (08:33)
[2024-02-12] MEDS: Ferrous Sulfate 325 MG Tab PO SCH (08:33)
[2024-02-12] MEDS: Docusate Sodium 100 MG Cap PO PRN (08:33)
[2024-02-12] MEDS: Simethicone 80 MG Tab.Chew PO SCH (08:34)
[2024-02-13] MEDS: Acetaminophen/oxyCODONE 325-5 MG Tab PO PRN ×2 (01:14→08:18)
[2024-02-13] MEDS: Ibuprofen 800 MG Tab PO PRN (01:16)
[2024-02-13 06:29] LABS: HEMATOCRIT 23.7 % (37.0-47.0); HEMOGLOBIN 7.4 g/dL (12.0-16.0); MEAN CORPUSCULAR HEMOGLOBIN 26.9 pg (27.0-34.0); MEAN CORPUSCULAR HGB CONC 31.2 g/dL (33.0-35.0); MEAN CORPUSCULAR VOLUME 86.2 fL (80-100); RED BLOOD CELL COUNT 2.75 10^6/uL (4.2-5.4); WHITE BLOOD CELL COUNT,WBC 17.6 10^3/uL (5.0-10.0)
[2024-02-13 11:46] LABS: C.TRACHOMATIS BY TMA Negative (Negative); N.GONORRHOEAE BY TMA Negative (Negative); SOURCE URINE
[2024-02-14 12:44] VITALS: BP 118/49; PULSE 82
[2024-02-15 13:47] LABS: HCV AB BY CIA INTERP Negative (Negative); HEP B SURFACE AG Negative (Negative); HEPC AB BY CIA INDEX 0.21 IV
== END 2024-02-14 12:30 | disposition home or self-care (01) | DRG 787 ==
LOC: DL.OBCHECK 19:51 → DL.OB 20:49 → OBSVTOIN 21:04
PROVIDERS: ADMIT Family Medicine; ATTEND Family Medicine
PROC: 10D00Z1 Extraction of Products of Conception, Low, Open Approach (ICD-10-PCS; principal; 2024-02-11 21:00)
DX: O41.03X0 Oligohydramnios, third trimester, not applicable or unspecified (principal); D62 Acute posthemorrhagic anemia; O76 Abnormality in fetal heart rate and rhythm complicating labor and delivery; Z37.0 Single live birth; Z3A.35 35 weeks gestation of pregnancy; O90.81 Anemia of the puerperium
CPT/HCPCS: 36415; 51702; 76815; 80305-QW; 81001; 82274; 85027; 86592; 86762; 86803; 86850; 86900; 86901; 87081; 87210; 87340; 87389; 87491; 87591; A9270-GY; J0456; J0696; J1200; J1885; J2405; J2590; J7050; J7120

== ENCOUNTER 2025-06-22 20:22 | Emergency (ER) | payer MEDICAID, OTHER ==
[2025-06-22 20:38] VITALS: BP 131/77; PULSE 95
== END 2025-06-22 20:50 ==
LOC: DL.ED 20:22
DX: Z32.01 Encounter for pregnancy test, result positive (principal)
CPT/HCPCS: 81025; 99283

== ENCOUNTER 2025-07-17 12:29 | Emergency (ER) | payer MEDICAID ==
[2025-07-17 13:04] LABS: BASOPHILS PERCENT AUTO 0.4 % (0.0-1.0); EOSINOPHILS PERCENT AUTO 2.8 % (1.0-3.0); LYMPHOCYTES PERCENT AUTO 13.8 % (20.5-50.1); MONOCYTES PERCENT AUTO 5.5 % (2-8); NEUTROPHILS PERCENT AUTO 77.5 % (42.2-75.2); PLATELET COUNT,PLT 318 10^3/uL (150-450); RED BLOOD CELL COUNT 3.44 10^6/uL (4.2-5.4); WHITE BLOOD CELL COUNT,WBC 10.8 10^3/uL (5.0-10.0)
[2025-07-17 13:23] LABS: ALANINE AMINOTRANSFERASE,ALT 16 U/L (14-59); ASPARTATE AMNIOTRANSFERASE,AST 13 U/L (15-37); BILIRUBIN TOTAL 0.3 mg/dL (0.2-1.0); BLOOD UREA NITROGEN,BUN 8 mg/dL (7-18); CARBON DIOXIDE,CO2 25 mmol/L (21-32); CHLORIDE,CL 106 mmol/L (98-107); CREATININE 0.53 mg/dL (0.55-1.02); EST CRCL DRUG DOSING (CG) 110.48 mL/min; GLUCOSE RANDOM 86 mg/dL (70-99); POTASSIUM,K 3.1 mmol/L (3.5-5.1); PROTEIN TOTAL,TP 6.9 g/dL (6.4-8.2); SODIUM,NA 141 mmol/L (136-145)
[2025-07-17 13:24] LABS: A/G RATIO 0.77; ESTIMATED GFR 119 mL/min (>=60)
[2025-07-17 13:26] LABS: HCG QUALITATIVE,SERUM POSITIVE (NEGATIVE)
[2025-07-17] MEDS: Potassium Chloride 10 MEQ Tab.ER PO ONE (13:46)
[2025-07-17 13:54] VITALS: BP 112/98; PULSE 87
== END 2025-07-17 13:53 ==
LOC: DL.ED 12:29
DX: O99.321 Drug use complicating pregnancy, first trimester (principal); F15.10 Other stimulant abuse, uncomplicated; O10.011 Pre-existing essential hypertension complicating pregnancy, first trimester; Z3A.00 Weeks of gestation of pregnancy not specified
CPT/HCPCS: 36415; 80053; 84703; 85025; 99283; A9270